=== PATIENT | male | born 1975 | race Caucasian/White ===

== ENCOUNTER 2018-10-24 12:26 | Emergency (ER) | payer MEDICAID ==
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
[2018-10-24] MEDS ORDERED: oxyCODON/ACET (*)5/325MG (CII) 1 TAB TAB PO ONE (12:40)
[2018-10-24] MEDS ORDERED: KETAMINE HCL 500 MG/5 ML VIAL IVP ONE (12:50)
[2018-10-24] MEDS ORDERED: NS(*) 0.9% 500 ML BAG 500 ML IV PRN (12:50)
[2018-10-24] MEDS ORDERED: DIPHTH/TETANUS/ACEL. PERTUSSIS IM ONLY ONE (12:55)
[2018-10-24] MEDS ORDERED: LIDOCAINE 5% OINT 35.44 GM OINT TP ONE (12:55)
[2018-10-24] MEDS ORDERED: fentaNYL CITR 100 MCG/2 ML AMP IVP ONE (13:45)
[2018-10-24 13:49] VITALS: BP 152/99
[2018-10-24] MEDS ORDERED: HYDR-385 PO (14:19)
== END 2018-10-24 14:36 | disposition home or self-care (01) ==
LOC: ER 12:27
DX: T23.341A Burn of third degree of multiple right fingers (nail), including thumb, initial encounter (principal); T22.112A Burn of first degree of left forearm, initial encounter
CPT/HCPCS: 16020; 90471; 90715; 96361; 96374; 99284; J3010; J7040